=== PATIENT | female | born 2005 | race Caucasian/White ===

== ENCOUNTER 2025-09-07 21:19 | Emergency (ER) | payer BC ==
[2025-09-07] MEDS ORDERED: Acetaminophen 500 MG TAB ONE (21:33)
[2025-09-07] MEDS ORDERED: Oseltamivir 75 MG CAP ONE (22:46)
[2025-09-07] MEDS ORDERED: predniSONE 20 MG TAB ONE (22:46)
== END 2025-09-07 23:10 | disposition home or self-care (01) ==
LOC: MADERS 21:19
DX: J10.1 Influenza due to other identified influenza virus with other respiratory manifestations (principal)
CPT/HCPCS: 87081; 87428; 87430; 99283; J7512